=== PATIENT | male | born 1950 | race Hispanic/Latino ===

== ENCOUNTER 2018-03-18 06:39 | Emergency (ER) | payer OTHER ==
[2018-03-18] MEDS ORDERED: IBUPROFEN 200 MG TAB PO ONE (07:45)
[2018-03-18] MEDS ORDERED: IBUPROFEN 400 MG TAB ONE (07:45)
[2018-03-18 08:59] VITALS: BP 121/83; TEMP 100.5; O2SAT 96
== END 2018-03-18 08:54 | disposition home or self-care (01) ==
LOC: ER 06:39
DX: J10.1 Influenza due to other identified influenza virus with other respiratory manifestations (principal); I10 Essential (primary) hypertension
CPT/HCPCS: 87070; 87081; 87804; 99283